=== PATIENT | female | born 1940 | race Caucasian/White ===

== ENCOUNTER 2018-01-29 17:47 | Emergency (ER) | payer MEDICARE, OTHER ==
[2018-01-29] MEDS ORDERED: DIAZEPAM INJ 10 MG/2 ML DISP.SYRIN IM ONE (19:45)
[2018-01-29] MEDS ORDERED: KETOROLAC TROMETHAMINE 60 MG/2 ML SDV IM ONE (19:45)
[2018-01-29] MEDS ORDERED: DEXAMETHASONE SOD PHOS INJ 10 MG/1 ML VIAL IM ONE (19:45)
--- NOTE | 2018-01-29 20:06 | ER Document Report ---
ED General - General Chief Complaint: Leg Pain Stated Complaint: LEG PAIN Time Seen by Provider: 01/29/18 19:26 Mode of Arrival: Wheelchair Information source: Patient, Relative Notes: 77 yr old female presents with hx dvt , complaints of right sided back pain radiating down the buttocks to the groin to the foot of 1 month duration. pt notes this is not similar to her previous dvt pain, states it is a sharp lightning pain. denies any weakness or numbness. denies any loss of bowel or bladder function. TRAVEL OUTSIDE OF THE [place] IN LAST 30 DAYS: No - HPI Onset: Other Onset/Duration: Persistent Quality of pain: Sharp Severity: Mild Pain Level: 1 Associated symptoms: Body/muscle aches Exacerbated by: Movement, Walking Relieved by: Denies - does not take nay meds for the pain Similar symptoms previously: Yes Recently seen / treated by doctor: No - Related Data Allergies/Adverse Reactions: meperidine HCl [From Demerol] Adverse Reaction (Intermediate, Verified 07/11/15 11:31) Hallucinations,verbally abusive Past Medical History - Social History Smoking Status: Never Smoker Cigarette use (# per day): No Chew tobacco use (# tins/day): No Smoking Education Provided: No Frequency of alcohol use: None Drug Abuse: None Family History: Reviewed & Not Pertinent Patient has suicidal ideation: No Patient has homicidal ideation: No - Past Medical History Cardiac Medical History: Reports: Hx Hypertension Denies: Hx Coronary Artery Disease, Hx Heart Attack Pulmonary Medical History: Reports: Hx Pneumonia - Years ago Denies: Hx Asthma, Hx Bronchitis, Hx COPD Neurological Medical History: Denies: Hx Cerebrovascular Accident, Hx Seizures Renal/ Medical History: Denies: Hx Peritoneal Dialysis GI Medical History: Reports: Hx Hiatal Hernia. Denies: Hx Hepatitis, Hx Ulcer Musculoskeltal Medical History: Reports Hx Arthritis - joints Infectious Medical History: Denies: Hx Hepatitis Past Surgical History: Reports: Hx Hysterectomy, Hx Mastectomy - bilat,NO RESTRICTIONS, 44 years ago. Denies: Hx Open Heart Surgery, Hx Pacemaker - Immunizations Hx Diphtheria, Pertussis, Tetanus Vaccination: - unknown Hx Pneumococcal Vaccination: 08/02/10 Review of Systems - Review of Systems Notes: REVIEW OF SYSTEMS: CONSTITUTIONAL : Denies fever, chills, or sweats. Denies recent illness. EENT: Denies eye, ear, throat, or mouth pain or symptoms. Denies nasal or sinus congestion or discharge. Denies throat, tongue, or mouth swelling or difficulty swallowing. CARDIOVASCULAR: Denies chest pain. Denies palpitations or racing or irregular heart beat. Denies ankle edema. RESPIRATORY: Denies cough, cold, or chest congestion. Denies shortness of breath, difficulty breathing, or wheezing. GASTROINTESTINAL: Denies abdominal pain or distention. Denies nausea, vomiting , or diarrhea. Denies blood in vomitus, stools, or per rectum. Denies black, tarry stools. Denies constipation. GENITOURINARY: Denies difficulty urinating, painful urination, burning, frequency, blood in urine, or discharge. FEMALE GENITOURINARY: Denies vaginal bleeding, heavy or abnormal periods, irregular periods. Denies vaginal discharge or odor. MUSCULOSKELETAL: admits to back pain radiating down the leg on the right HEMATOLOGIC : Denies easy bruising or bleeding. LYMPHATIC: Denies swollen, enlarged glands. NEUROLOGICAL: Denies confusion or altered mental status. Denies passing out or loss of consciousness. Denies dizziness or lightheadedness. Denies headache. Denies weakness or paralysis or loss of use of either side. Denies problems with gait or speech. Denies sensory loss, numbness, or tingling. Denies seizures. PSYCHIATRIC: Denies anxiety or stress. Denies depression, suicidal ideation, or homicidal ideation. ALL OTHER SYSTEMS REVIEWED AND NEGATIVE. PHYSICAL EXAMINATION: GENERAL: Well-appearing, well-nourished and in no acute distress. HEAD: Atraumatic, normocephalic. EYES: Pupils equal round and reactive to light, extraocular movements intact, conjunctiva are normal. ENT: Nares patent, oropharynx clear without exudates. Moist mucous membranes. NECK: Normal range of motion, supple without lymphadenopathy LUNGS: Breath sounds clear to auscultation bilaterally and equal. No wheezes rales or rhonchi. HEART: Regular rate and rhythm without murmurs ABDOMEN: Soft, nontender, nondistended abdomen. No guarding, no rebound. No masses appreciated. Female : deferred Musculoskeletal: Normal range of motion, no pitting or edema. No cyanosis. point tenderness noted in the right buttocks consistent with the sciatic nerve region NEUROLOGICAL: Cranial nerves grossly intact. Normal speech, normal gait. Normal sensory, motor exams PSYCH: Normal mood, normal affect. SKIN: Warm, Dry, normal turgor, no rashes or lesions noted. Dictation was performed using [employer] voice recognition software Physical Exam - Vital signs Vitals: Temp Pulse Resp BP Pulse Ox 97.7 F 68 18 132/64 H 98 01/29/18 17:57 01/29/18 17:57 01/29/18 17:57 01/29/18 17:57 01/29/18 17:57 Course - Re-evaluation Re-evalutation: 01/29/18 21:26 Patient's presentation was consistent with sciatica, given that this pain has been ongoing for a month she is otherwise well-appearing and denies that this pain is similar to previous DVTs I do believe she is stable for discharge with treatment of her sciatic nerve with extremely close follow-up patient's very happy with this plan Patient has absolutely no abdominal pain no back pain concerning for aortic dissection After performing a Medical Screening Examination, I estimate there is LOW risk for EXPANDING OR RUPTURED ABDOMINAL AORTIC ANEURYSM, CAUDA EQUINA SYNDROME, EPIDURAL MASS LESION, or HERNIATED DISK CAUSING SEVERE SPINAL STENOSIS, thus I consider the discharge disposition reasonable. I have reevaluated this patient multiple times and no significant life threatening changes are noted. The patient and I have discussed the diagnosis and risks, and we agree with discharging home and close follow-up. We also discussed returning to the Emergency Department immediately if new or worsening symptoms occur with the understanding that symptoms and presentations can change. We have discussed the symptoms which are most concerning (e.g., saddle anesthesia, urinary or bowel incontinence or retention, changing or worsening pain) that necessitate immediate return. - Vital Signs Vital signs: Temp Pulse Resp BP Pulse Ox 97.7 F 70 18 129/67 H 99 01/29/18 17:57 01/29/18 20:14 01/29/18 20:14 01/29/18 20:14 01/29/18 20:14 Discharge - Discharge Clinical Impression: Leg pain Qualifiers: Laterality: right Qualified Code(s): M79.604 - Pain in right leg Sciatica Qualifiers: Laterality: right Qualified Code(s): M54.31 - Sciatica, right side Condition: Stable Disposition: HOME, SELF-CARE Instructions: Sciatica (OM) Additional Instructions: Follow up with your physician tomorrow for further care or return to the ED IMMEDIATELY if symptoms worsen or new concerns occur. If you cannot afford to follow up with your primary care physician a list of low cost clinics have been provided at the end of your discharge papers as well. Prescriptions: Diazepam [Valium 5 mg Tablet] 5 mg PO QIDP PRN #15 tablet PRN Reason: Naproxen 500 mg PO BID #20 tablet Referrals: CHAIRSSA HERNÁNDEZ PA-C [Primary Care Provider] - Follow up as needed
[2018-01-29 20:15] VITALS: BP 129/67
== END 2018-01-29 20:15 | disposition home or self-care (01) ==
LOC: ER 17:47
DX: M54.31 Sciatica, right side (principal); M79.604 Pain in right leg; M54.9 Dorsalgia, unspecified; M79.1 Myalgia; I10 Essential (primary) hypertension
CPT/HCPCS: 99283; 96372; J3360; J1885; J1100

== ENCOUNTER 2018-11-26 13:03 | Emergency (ER) | payer MEDICARE, OTHER ==
[2018-11-26 14:21] LABS: INTERNATIONAL RATION (INR) 1.24; PROTHROMBIN TIME 16.2 SEC (11.4-15.4)
[2018-11-26 14:22] LABS: PARTIAL THROMBOPLASTIN TIME 37.5 SEC (23.5-35.8)
--- NOTE | 2018-11-26 14:32 | ER Document Report ---
ED General - General Chief Complaint: Leg Swelling Stated Complaint: SWOLLEN LEGS Time Seen by Provider: 11/26/18 13:29 Primary Care Provider: CHARISSA HERNÁNDEZ PA-C [Primary Care Provider] - Follow up as needed TRAVEL OUTSIDE OF THE [place] 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 Patient states that 10 days ago she had a cancerous lesion that out of her skin on the right side of her face and when she went for her follow-up 2 days ago they noticed that it was a little red so they placed her on Keflex. The swelling then started after taking 2 days of Keflex. Patient states that she is otherwise eating and drinking without difficulty. She is urinating normally and having normal bowel movements. Patient is able to ambulate line discomfort. Patient states that she does not have any associated pain, but can feel that she has swelling in her legs. No other concerns or complaints. Denies any headache, fever, neck pain, URI, sore throat, chest pain, palpitations, syncope, cough, shortness of breath, wheeze, dyspnea, abdominal pain, nausea/vomiting/diarrhea, urinary retention, dysuria, hematuria. - Related Data Allergies/Adverse Reactions: meperidine HCl [From Demerol] Adverse Reaction (Intermediate, Verified 11/26/18 13:05) Hallucinations,verbally abusive Past Medical History - Social History Smoking Status: Never Smoker Chew tobacco use (# tins/day): No Frequency of alcohol use: None Family History: Reviewed & Not Pertinent Patient has suicidal ideation: No Patient has homicidal ideation: No - Past Medical History Cardiac Medical History: Reports: Hx Hypertension Denies: Hx Coronary Artery Disease, Hx Heart Attack Pulmonary Medical History: Reports: Hx Pneumonia - Years ago Denies: Hx Asthma, Hx Bronchitis, Hx COPD Neurological Medical History: Denies: Hx Cerebrovascular Accident, Hx Seizures Renal/ Medical History: Denies: Hx Peritoneal Dialysis GI Medical History: Reports: Hx Hiatal Hernia. Denies: Hx Hepatitis, Hx Ulcer Musculoskeletal Medical History: Reports Hx Arthritis - joints Infectious Medical History: Denies: Hx Hepatitis Past Surgical History: Reports: Hx Hysterectomy, Hx Mastectomy - bilat,NO RESTRICTIONS, 44 years ago. Denies: Hx Open Heart Surgery, Hx Pacemaker - Immunizations Hx Diphtheria, Pertussis, Tetanus Vaccination: - unknown Hx Pneumococcal Vaccination: 08/02/10 Review of Systems - Review of Systems -: Yes All other systems reviewed and negative Physical Exam - Vital signs Vitals: Temp Pulse Resp BP Pulse Ox 98.5 F 64 16 131/42 H 99 11/26/18 13:20 11/26/18 13:20 11/26/18 13:20 11/26/18 13:20 11/26/18 13:20 - Notes Notes: PHYSICAL EXAMINATION: GENERAL: Well-appearing, well-nourished and in no acute distress. A&Ox4. Answers questions appropriately. HEAD: Atraumatic, normocephalic. EYES: Pupils equal round and reactive to light, extraocular movements intact, sclera anicteric, conjunctiva are normal. ENT: Nares patent and without discharge. oropharynx clear without exudates. No tonsilar hypertrophy or erythema. Moist mucous membranes. NECK: Normal range of motion, supple without lymphadenopathy LUNGS: Breath sounds clear to auscultation bilaterally and equal. No wheezes rales or rhonchi. HEART: Regular rate and rhythm without murmurs, rubs, gallops. ABDOMEN: Soft, nontender, nondistended abdomen. No guarding, no rebound. No masses appreciated. Normal bowel sounds present. No CVA tenderness bilaterally. Musculoskeletal: FROM to passive/active. Strength 5+/5. No bony tenderness to LE's b/l. Extremities: 1+ pitting edema b/l LE's extending proximally to the upper tibial area, sparing the knees. Peripheral pulses 2+. Capillary refill less than 3 seconds. Allison neg b/l. NEUROLOGICAL: Normal speech, normal gait. Normal sensory, motor exams PSYCH: Normal mood, normal affect. SKIN: LE's b/l: there is a mild petechiae noted as well as blanchable erythema. No significant warmth. The erythema is symmetrical b/l and extends to the mid tibia approx. Course - Re-evaluation Re-evalutation: 11/26/18 15:21 Venous doppler negative b/l CMP shows MARY vs CKD. We do not have updated labs on this patient. I placed a call and left a VM to their family provider's office whom I will check back in with if they don't return my call soon. 11/26/18 16:13 I have repeatedly called her family office with no answer. I did review with Dr. Gomez who is in agreement with dispo/plan: Patient is an afebrile, well-hydrated, 78-year-old female who presents the emergency department bilateral lower extremity edema without sufficient evidence for cellulitis. Vitals are acceptable without significant tachycardia, tachypnea, or hypoxia. PE is otherwise unremarkable. Patient is nontoxic- appearing and is tolerating p.o. without difficulty. Doppler ultrasound was negative bilaterally. CBC unremarkable for any acute pathology. CMP does show chronic kidney disease versus acute kidney injury with a potassium of 5.1. I will add Lasix 20 mg once daily for 3 days and have her follow-up with her family doctor on Thursday. Patient to monitor symptoms closely and seek medical attention with any acute changes. I do have a low suspicion at this time for any sepsis, meningitis, significant cellulitis, severe dehydration, acute congestive heart failure, or other systemic emergent condition at this time. Patient does not have any chest pain, shortness of breath, or dyspnea on exertion. No further labs or imaging warranted at this time. Patient would like to stop her Keflex so we will switch her to Doxy (no renal adjustment). Return to the ED with any other worsening/concerning symptoms as reviewed. Patient is in agreement. - Vital Signs Vital signs: Temp Pulse Resp BP Pulse Ox 98.5 F 64 16 131/42 H 99 11/26/18 13:20 11/26/18 13:20 11/26/18 13:20 11/26/18 13:20 11/26/18 13:20 - Laboratory Result Diagrams: 11/26/18 14:04 11/26/18 14:04 Laboratory results interpreted by me: 11/26/18 11/26/18 14:04 14:04 PT 16.2 H APTT 37.5 H Potassium 5.1 H BUN 33 H Creatinine 1.31 H Est GFR ( Amer) 48 L Est GFR (Non-Af Amer) 39 L Glucose 123 H Discharge - Discharge Clinical Impression: Bilateral lower extremity edema Condition: Stable Disposition: HOME, SELF-CARE Additional Instructions: Maintain adequate fluid and food intake Take home medications as directed Low sodium/fat diet Exercise regularly Elevate legs and wear compression stockings Monitor blood pressure daily and keep a log Monitor symptoms for any acute changes Recheck with your PCM on Thursday Consider a follow-up with cardiology Return to the ED with any worsening symptoms and/or development of fever, headache, chest pain, palpitations, syncope, shortness of breath, trouble breathing, abdominal pain, n/v/d, blood in stool/urine, loss of control of bowel/bladder, urinary retention, muscle weakness/paralysis, numbness/tingling, or other worsening symptoms that are concerning to you. Prescriptions: Doxycycline Hyclate 100 mg PO BID #14 capsule Furosemide [Lasix 20 mg Tablet] 20 mg PO DAILY #3 tablet Forms: Elevated Blood Pressure Referrals: CHARISSA HERNÁNDEZ PA-C [Primary Care Provider] - 11/29/18
[2018-11-26 14:37] LABS: ABSOLUTE EOSINOPHILS # (AUTO) 0.1 10^3/uL (0.0-0.6); ABSOLUTE LYMPHOCYTES (AUTO) 0.9 10^3/uL (0.5-4.7); ABSOLUTE MONOCYTES (AUTO) 0.5 10^3/uL (0.1-1.4); ABSOLUTE NEUT (AUTO) 4.5 10^3/uL (1.7-8.2); BASOPHILS % (AUTO) 0.7 % (0-2); EOSINOPHILS % (AUTO) 2.3 % (0-6); HEMOGLOBIN 12.3 g/dL (12.0-15.5); LYMPHOCYTES % (AUTO) 15.1 % (13-45); MEAN CORPUSCULAR HEMOGLOBIN 30.2 pg (27.0-33.4); MEAN CORPUSCULAR HGB CONC 33.3 g/dL (32.0-36.0); MEAN CORPUSCULAR VOLUME 91 fl (80-97); MONOCYTES % (AUTO) 8.3 % (3-13); PLATELET COUNT 342 10^3/uL (150-450); RED BLOOD COUNT 4.07 10^6/uL (3.72-5.28); RED CELL DISTRIBUTION WIDTH 13.6 % (11.5-14.0); SEGMENTED NEUTROPHILS % (AUTO) 73.6 % (42-78); TOTAL CELLS COUNTED % (AUTO) 100 %; WHITE BLOOD COUNT 6.1 10^3/uL (4.0-10.5)
[2018-11-26 14:39] LABS: ALANINE AMINOTRANSFERASE 29 U/L (9-52); ALBUMIN 4.7 g/dL (3.5-5.0); ALKALINE PHOSPHATASE 69 U/L (38-126); ANION GAP 11 (5-19); ASPARTATE AMINO TRANSFERASE 24 U/L (14-36); BILIRUBIN,DIRECT 0.3 mg/dL (0.0-0.4); BILIRUBIN,TOTAL 0.5 mg/dL (0.2-1.3); BLOOD UREA NITROGEN 33 mg/dL (7-20); CALCIUM 9.8 mg/dL (8.4-10.2); CARBON DIOXIDE 25 mmol/L (22-30); CHLORIDE 103 mmol/L (98-107); GLUCOSE 123 mg/dL (75-110); POTASSIUM 5.1 mmol/L (3.6-5.0); SODIUM 139.1 mmol/L (137-145); TOTAL PROTEIN 7.2 g/dL (6.3-8.2)
[2018-11-26] MEDS ORDERED: NORMAL SALINE 1000 ML 1,000 ML IV ONE (15:14)
--- NOTE | 2018-11-26 16:11 | RADIOLOGY REPORT (SQ) ---
EXAM DESCRIPTION: VENOUS BILATERAL LOWER COMPLETED DATE/TIME: 11/26/2018 4:00 pm REASON FOR STUDY: b/l LE edema COMPARISON: None. TECHNIQUE: Dynamic and static box scale and color images acquired of both lower extremity venous sy stems. Selected spectral images acquired with additional compression and augmentation maneuvers. Imag es stored on PACS. LIMITATIONS: None. FINDINGS: RIGHT LEG COMMON FEMORAL AND FEMORAL: Normal phasicity, compression and augmentation. No visualized echogenic m aterial on box scale. No defects on color images. POPLITEAL: Normal compression and augmentation. No visualized echogenic material on box scale. No de fects on color images. CALF VESSELS: Normal compression and augmentation. No visualized echogenic material on box scale. No defects on color image. GSV AND SSV: Normal compression. No visualized echogenic material on box scale. No defects on color images. ANY DEEP VENOUS INSUFFICIENCY: Not evaluated. ANY EVIDENCE OF POPLITEAL CYST: No. OTHER: No other significant finding. LEFT LEG COMMON FEMORAL AND FEMORAL: Normal phasicity, compression and augmentation. No visualized echogenic m aterial on box scale. No defects on color images. POPLITEAL: Normal compression and augmentation. No visualized echogenic material on box scale. No de fects on color images. CALF VESSELS: Normal compression and augmentation. No visualized echogenic material on box scale. No defects on color images. GSV AND SSV: Normal compression. No visualized echogenic material on box scale. No defects on color images. ANY DEEP VENOUS INSUFFICIENCY: Not evaluated. ANY EVIDENCE POPLITEAL CYST: No. OTHER: No other significant finding. IMPRESSION: NO EVIDENCE DVT OR SVT IN EITHER LEG. TECHNICAL DOCUMENTATION: JOB ID: [id number]- All Rights Reserved Reading location - IP/workstation name: [email or web address]
[2018-11-26 16:33] VITALS: BP 143/80
--- NOTE | 2018-11-26 18:18 | ER Document Report ---
Entered by ADELINE VARGAS SCRIBE 11/26/18 1406 Acting as scribe for:JENNIFER BENJAMIN DO ED Medical Screen (RME) - General Chief Complaint: Leg Swelling Stated Complaint: SWOLLEN LEGS Time Seen by Provider: 11/26/18 13:29 Primary Care Provider: CHARISSA HERNÁNDEZ PA-C [Primary Care Provider] - Follow up as needed Notes: 78-year-old female who presents to the emergency department today secondary to bilateral leg erythema, warmth, and swelling. Patient states 10 days ago she underwent surgery to have an unknown type of skin cancer removed from the right side of her face. Patient states this operation lasted approximately 1 hour and she was under general anesthesia for the surgery. Patient states when she went in for her stitch removal there was some redness around the area so she was started on Keflex. Patient states the swelling and erythema on her legs did not start until after beginning the Keflex. Patient is on Eliquis. Patient has a history of multiple DVTs. Patient denies any recent trips. I have greeted and performed a rapid initial assessment of this patient. A comprehensive ED assessment and evaluation of the patient, analysis of test results, and completion of the medical decision making process will be conducted by additional ED providers. Review of systems: Constitutional: No symptoms reported EENT: No symptoms reported Cardiovascular: No symptoms reported Respiratory: No symptoms reported Gastrointestinal: No symptoms reported Genitourinary: No symptoms reported Musculoskeletal: No symptoms reported Skin: No symptoms reported Hematologic/Lymphatic: No symptoms reported Neurological/Psychological: No symptoms reported Yes All other systems reviewed and negative PHYSICAL EXAM GENERAL: Alert, interacts well. No acute distress. HEAD: Normocephalic, atraumatic. EYES: Pupils equal, round, and reactive to light. Extraocular movements intact. ENT: Oral mucosa moist, tongue midline. NECK: Full range of motion. Supple. Trachea midline. LUNGS: No respiratory distress. EXTREMITIES: 1+ pitting edema to bilateral lower extremities with petechiae as well as blanchable erythema. The swelling extends to approximately two thirds the length of the lower leg, there is no swelling at the level of the knee. No temperature difference in erythematous area versus non-erythematous areas. NEUROLOGICAL: Alert and oriented x3. Normal speech. PSYCH: Normal affect, normal mood. SKIN: Warm and dry. TRAVEL OUTSIDE OF THE [place] IN LAST 30 DAYS: No - Related Data Allergies/Adverse Reactions: meperidine HCl [From Demerol] Adverse Reaction (Intermediate, Verified 11/26/18 13:05) Hallucinations,verbally abusive Past Medical History - Social History Chew tobacco use (# tins/day): No Frequency of alcohol use: None - Past Medical History Cardiac Medical History: Reports: Hx Hypertension Denies: Hx Coronary Artery Disease, Hx Heart Attack Pulmonary Medical History: Reports: Hx Pneumonia - Years ago Denies: Hx Asthma, Hx Bronchitis, Hx COPD Neurological Medical History: Denies: Hx Cerebrovascular Accident, Hx Seizures Renal/ Medical History: Denies: Hx Peritoneal Dialysis GI Medical History: Reports: Hx Hiatal Hernia. Denies: Hx Hepatitis, Hx Ulcer Musculoskeltal Medical History: Reports Hx Arthritis - joints Infectious Medical History: Denies: Hx Hepatitis Past Surgical History: Reports: Hx Hysterectomy, Hx Mastectomy - bilat,NO RESTRICTIONS, 44 years ago. Denies: Hx Open Heart Surgery, Hx Pacemaker - Immunizations Hx Diphtheria, Pertussis, Tetanus Vaccination: - unknown Physical Exam - Vital signs Vitals: Temp Pulse Resp BP Pulse Ox 98.5 F 64 16 131/42 H 99 11/26/18 13:20 11/26/18 13:20 11/26/18 13:20 11/26/18 13:20 11/26/18 13:20 Course - Vital Signs Vital signs: Temp Pulse Resp BP Pulse Ox 98.5 F 64 16 131/42 H 99 11/26/18 13:20 11/26/18 13:20 11/26/18 13:20 11/26/18 13:20 11/26/18 13:20 Doctor's Discharge - Discharge Referrals: CHARISSA HERNÁNDEZ PA-C [Primary Care Provider] - Follow up as needed I personally performed the services described in the documentation, reviewed and edited the documentation which was dictated to the scribe in my presence, and it accurately records my words and actions.
== END 2018-11-26 16:34 | disposition home or self-care (01) ==
LOC: ER 13:03
DX: R60.9 Edema, unspecified (principal); I10 Essential (primary) hypertension; Z86.718 Personal history of other venous thrombosis and embolism; Z79.01 Long term (current) use of anticoagulants; Z90.710 Acquired absence of both cervix and uterus
CPT/HCPCS: 36415; 80053; 85025; 85610; 85730; 93970; 99284

== ENCOUNTER 2018-12-02 18:33 | Emergency (ER) | payer MEDICARE, OTHER ==
[2018-12-02] MEDS ORDERED: ONDANSETRON HCL INJ/PF 4 MG/2 ML SDV IV ONE ×2 (18:46→21:49)
[2018-12-02] MEDS ORDERED: NORMAL SALINE 1000 ML 1,000 ML IV ONE (18:46)
--- NOTE | 2018-12-02 18:48 | ER Document Report ---
ED Medical Screen (RME) - General Chief Complaint: Weakness Stated Complaint: POSSIBLE DEHYDRATION Time Seen by Provider: 12/02/18 18:45 Primary Care Provider: CHARISSA HERNÁNDEZ PA-C [Primary Care Provider] - Follow up as needed TRAVEL OUTSIDE OF THE [place] IN LAST 30 DAYS: No - HPI Notes: 12/02/18 18:46 Patient had a cancer removed left side of her face since that time nauseated saw her doctor today told that she was very dehydrated according to the laboratory studies and come to the ER for IV fluids. Patient has dry lips otherwise moist tongue looks to be stable 12/02/18 18:47 No nausea no vomiting - Related Data Allergies/Adverse Reactions: meperidine HCl [From Demerol] Adverse Reaction (Intermediate, Verified 12/02/18 18:40) Hallucinations,verbally abusive Past Medical History - Social History Frequency of alcohol use: None Drug Abuse: None - Past Medical History Cardiac Medical History: Reports: Hx Hypertension Denies: Hx Coronary Artery Disease, Hx Heart Attack Pulmonary Medical History: Reports: Hx Pneumonia - Years ago Denies: Hx Asthma, Hx Bronchitis, Hx COPD Neurological Medical History: Denies: Hx Cerebrovascular Accident, Hx Seizures Renal/ Medical History: Denies: Hx Peritoneal Dialysis GI Medical History: Reports: Hx Hiatal Hernia. Denies: Hx Hepatitis, Hx Ulcer Musculoskeltal Medical History: Reports Hx Arthritis - joints Infectious Medical History: Denies: Hx Hepatitis Past Surgical History: Reports: Hx Hysterectomy, Hx Mastectomy - bilat,NO RESTRICTIONS, 44 years ago. Denies: Hx Open Heart Surgery, Hx Pacemaker - Immunizations Hx Diphtheria, Pertussis, Tetanus Vaccination: - unknown Physical Exam - Vital signs Vitals: Temp Pulse Resp BP Pulse Ox 97.7 F 62 20 139/58 H 98 12/02/18 18:40 12/02/18 18:40 12/02/18 18:40 12/02/18 18:40 12/02/18 18:40 - Respiratory Respiratory status: No respiratory distress Chest status: Nontender Breath sounds: Normal Chest palpation: Normal Course - Vital Signs Vital signs: Temp Pulse Resp BP Pulse Ox 97.7 F 62 20 139/58 H 98 12/02/18 18:40 12/02/18 18:40 12/02/18 18:40 12/02/18 18:40 12/02/18 18:40 Doctor's Discharge - Discharge Referrals: CHARISSA HERNÁNDEZ PAJenniferC [Primary Care Provider] - Follow up as needed
[2018-12-02 19:48] LABS: ABSOLUTE LYMPHOCYTES (AUTO) 1.7 10^3/uL (0.5-4.7); ABSOLUTE MONOCYTES (AUTO) 0.8 10^3/uL (0.1-1.4); ABSOLUTE NEUT (AUTO) 4.2 10^3/uL (1.7-8.2); BASOPHILS % (AUTO) 0.6 % (0-2); EOSINOPHILS % (AUTO) 0.6 % (0-6); HEMATOCRIT 38.3 % (36.0-47.0); HEMOGLOBIN 13.3 g/dL (12.0-15.5); LYMPHOCYTES % (AUTO) 25.6 % (13-45); MEAN CORPUSCULAR HEMOGLOBIN 31.3 pg (27.0-33.4); MEAN CORPUSCULAR HGB CONC 34.6 g/dL (32.0-36.0); MEAN CORPUSCULAR VOLUME 91 fl (80-97); MONOCYTES % (AUTO) 11.9 % (3-13); PLATELET COUNT 389 10^3/uL (150-450); RED BLOOD COUNT 4.23 10^6/uL (3.72-5.28); RED CELL DISTRIBUTION WIDTH 13.4 % (11.5-14.0); SEGMENTED NEUTROPHILS % (AUTO) 61.3 % (42-78); TOTAL CELLS COUNTED % (AUTO) 100 %; WHITE BLOOD COUNT 6.8 10^3/uL (4.0-10.5)
[2018-12-02 19:54] LABS: INTERNATIONAL RATION (INR) 1.32
[2018-12-02 19:55] LABS: PARTIAL THROMBOPLASTIN TIME 34.4 SEC (23.5-35.8)
[2018-12-02 20:07] LABS: ALANINE AMINOTRANSFERASE 19 U/L (9-52); ALBUMIN 5.1 g/dL (3.5-5.0); ALKALINE PHOSPHATASE 66 U/L (38-126); ANION GAP 17 (5-19); ASPARTATE AMINO TRANSFERASE 34 U/L (14-36); BILIRUBIN,DIRECT 0.5 mg/dL (0.0-0.4); BILIRUBIN,TOTAL 0.5 mg/dL (0.2-1.3); BLOOD UREA NITROGEN 66 mg/dL (7-20); CALCIUM 9.2 mg/dL (8.4-10.2); CARBON DIOXIDE 26 mmol/L (22-30); CHLORIDE 97 mmol/L (98-107); GLUCOSE 143 mg/dL (75-110); LIPASE 104.2 U/L (23-300); POTASSIUM 4.5 mmol/L (3.6-5.0); SODIUM 139.7 mmol/L (137-145); TOTAL PROTEIN 8.4 g/dL (6.3-8.2)
[2018-12-02] MEDS ORDERED: NORMAL SALINE 500 ML IV ONE ×2 (20:24→23:37)
--- NOTE | 2018-12-02 20:24 | ER Document Report ---
ED GI/ - General Chief Complaint: Weakness Stated Complaint: POSSIBLE DEHYDRATION Time Seen by Provider: 12/02/18 18:45 Primary Care Provider: CHARISSA HERNÁNDEZ PA-C [Primary Care Provider] - Follow up as needed Notes: Patient is a 78-year-old female that comes to the emergency department for chief complaint of dry heaving and mid to left abdominal pain for almost a week now. She states that when she eats she vomits or at least dry heaves, she has done this twice a day, she is eating and drinking much less as a result. She was in here by primary care for possible dehydration. Past medical history of DVT, on Coumadin, hypertension, hypothyroidism, hysterectomy, appendectomy, hernia repair. She states she is on doxycycline after she had skin removed from her face and then secondary infection (originally on Keflex, placed on doxycycline last time she was seen). She denies chest pain, fever/chills, blood in stool or vomiting. She is having decreased bowel movements because of decreased intake she presumes. TRAVEL OUTSIDE OF THE [place] IN LAST 30 DAYS: No - Related Data Allergies/Adverse Reactions: meperidine HCl [From Demerol] Adverse Reaction (Intermediate, Verified 12/02/18 18:40) Hallucinations,verbally abusive Past Medical History - General Information source: Patient, Relative - Social History Smoking Status: Never Smoker Frequency of alcohol use: None Drug Abuse: None Lives with: Family Family History: Reviewed & Not Pertinent Patient has suicidal ideation: No Patient has homicidal ideation: No - Past Medical History Cardiac Medical History: Reports: Hx Hypertension Denies: Hx Coronary Artery Disease, Hx Heart Attack Pulmonary Medical History: Reports: Hx Pneumonia - Years ago Denies: Hx Asthma, Hx Bronchitis, Hx COPD Neurological Medical History: Denies: Hx Cerebrovascular Accident, Hx Seizures Renal/ Medical History: Denies: Hx Peritoneal Dialysis GI Medical History: Reports: Hx Hiatal Hernia. Denies: Hx Hepatitis, Hx Ulcer Musculoskeletal Medical History: Reports Hx Arthritis - joints Infectious Medical History: Denies: Hx Hepatitis Past Surgical History: Reports: Hx Hysterectomy, Hx Mastectomy - bilat,NO RESTRICTIONS, 44 years ago. Denies: Hx Open Heart Surgery, Hx Pacemaker - Immunizations Hx Diphtheria, Pertussis, Tetanus Vaccination: - unknown Hx Pneumococcal Vaccination: 08/02/10 Review of Systems - Review of Systems Constitutional: No symptoms reported EENT: No symptoms reported Cardiovascular: No symptoms reported Respiratory: No symptoms reported Gastrointestinal: See HPI Genitourinary: No symptoms reported Female Genitourinary: No symptoms reported Musculoskeletal: No symptoms reported Skin: No symptoms reported Hematologic/Lymphatic: No symptoms reported Neurological/Psychological: No symptoms reported Physical Exam - Vital signs Vitals: Temp Pulse Resp BP Pulse Ox 97.7 F 62 20 139/58 H 98 12/02/18 18:40 12/02/18 18:40 12/02/18 18:40 12/02/18 18:40 12/02/18 18:40 - Notes Notes: GENERAL: Alert, interacts well. No acute distress. HEAD: Normocephalic, atraumatic. EYES: Pupils equal, round, and reactive to light. Extraocular movements intact. ENT: Oral mucosa very dry, tongue midline. Oropharynx unremarkable. Airway patent. Nares patent, no nasal septal hematoma, TM's intact. NECK: Full range of motion. Supple. Trachea midline. LUNGS: Clear to auscultation bilaterally, no wheezes, rales, or rhonchi. No respiratory distress. HEART: Regular rate and rhythm. No murmur ABDOMEN: Tender over the left abdomen generally, no guarding, tension noted, no rebound tenderness. Unremarkable otherwise. Bowel sounds present. GENITOURINARY: Deferred EXTREMITIES: Moves all 4 extremities spontaneously. No edema, normal radial and dorsalis pedis pulses bilaterally. No cyanosis. BACK: no cervical, thoracic, lumbar midline tenderness. No saddle anesthesia, normal distal neurovascular exam. NEUROLOGICAL: Alert and oriented x3. Normal speech. [cranial nerves II through XII grossly intact]. PSYCH: Normal affect, normal mood. SKIN: Warm, dry, normal turgor. No rashes or lesions noted. Course - Re-evaluation Re-evalutation: Patient with parched mucous membranes on exam, appears dry. She does have left- sided abdominal tenderness but she is not guarding, distended, and she has no rebound tenderness. Vital signs are unremarkable. CBC unremarkable. Chemistry shows worsened renal function with creatinine of 2.5 and decreased creatinine clearance. BUN is very elevated at 66. Patient given initial IV fluid bolus, given an additional 500 afterwards, she will also complete the 2 L bolus shortly. Reexamined patient, still has some abdominal tenderness. She states she feels somewhat improved already. Discussed options, decision was made to proceed with scan with oral contrast. Oral contrast scan showing moderate hiatal hernia but is otherwise unremarkable, no acute findings. I reevaluated patient again, recheck chemistry. Patient sitting on the edge of the bed, states she feels much improved and is ready to leave. Daughter at bedside. Creatinine significantly improved after IV fluids, BUN is coming down. Patient stating that she has a lot of difficulty with eating with nausea, however she was able to tolerate p.o. in the room after medications without any difficulty, she is requesting Zofran. Given Pepcid and Carafate as well given hiatal hernia and history. Discussed recommendations, follow-up, and return precautions. Patient will perform close follow-up with an appointment already scheduled within 24 hours, given her report today. Stable at time of discharge. - Vital Signs Vital signs: Temp Pulse Resp BP Pulse Ox 97.6 F 63 18 124/55 L 99 12/03/18 02:18 12/03/18 02:18 12/03/18 02:18 12/03/18 02:18 12/03/18 02:18 - Laboratory Result Diagrams: 12/02/18 19:23 12/03/18 00:40 Laboratory results interpreted by me: 12/02/18 12/02/18 12/03/18 19:23 19:23 00:40 PT 17.0 H Sodium 136.5 L Chloride 97 L BUN 66 H 56 H Creatinine 2.36 H 1.58 H Est GFR ( Amer) 24 L 38 L Est GFR (Non-Af Amer) 20 L 32 L Glucose 143 H 112 H Calcium 8.1 L Direct Bilirubin 0.5 H Total Protein 8.4 H Albumin 5.1 H Discharge - Discharge Clinical Impression: Dehydration, Nausea, Creatinine elevation, Uremia of renal origin Condition: Stable Disposition: HOME, SELF-CARE Additional Instructions: Your workup shows a hiatal hernia, this probably is related to your nausea and reduced ability to eat. We have provided you with Zofran for nausea, famoti dine, and the Carafate to help her symptoms improve. Please follow-up with gastroenterology for additional evaluation and management. Your workup also showed significantly worsening kidney functioning, after IV fluid therapy your kidneys have responded and significantly improved. Try to improve your hydration at home. Return if you worsen including vomiting, severe abdominal pain, fever, passing out, or any other concerning symptoms. Prescriptions: Famotidine [Pepcid 20 mg Tablet] 20 mg PO BID #20 tablet Ondansetron [Zofran Odt 4 mg Tablet] 1 - 2 tab PO Q4H PRN #20 tab.rapdis PRN Reason: For Nausea/Vomiting Sucralfate [Carafate 1 gm Tablet] 1 gm PO QID #20 tablet Referrals: CHARISSA HERNÁNDEZ PA-C [Primary Care Provider] - Follow up as needed
--- NOTE | 2018-12-03 00:57 | RADIOLOGY REPORT (SQ) ---
EXAM DESCRIPTION: CT ABDOMEN PELVIS WITHOUT IV CONTRAST COMPLETED DATE/TME: 12/02/2018 21:48 CLINICAL HISTORY: 78 years Female, left abd pain, vomiting Comparison: None. Technique: No IV contrast. Oral contrast only. Coronal and sagittal reformat. This exam was performed according to our departmental dose-optimization program, which includes automated exposure control, adjustment of the mA and/or kV according to patient size and/or use of iterative reconstruction technique.[facility]: Dose Right [facility]: CareDose [facility]: Dose Right [facility]: Teradose 4D [facility]: CartRescuer LIMITATIONS: None Findings: Moderate hiatal hernia. 4 cm subcutaneous fat streaking probably due to scar at the right paracentral anterior pelvic wall. Appendectomy. Cholecystectomy. Uterus surgically absent. IVC filter. Atelectasis/scar. Atherosclerotic vascular disease. Degenerative disc disease. Grade 1 degenerative anterolisthesis. No ascites. No pneumoperitoneum. No bowel obstruction. No hydronephrosis or hydroureter. No renal/ureteral stone. Unenhanced lower thorax, abdominopelvic structures, and musculoskeleton appear otherwise grossly unremarkable. Impression: No acute findings. Moderate hiatal hernia.
[2018-12-03 00:59] LABS: ANION GAP 13 (5-19); BLOOD UREA NITROGEN 56 mg/dL (7-20); CALCIUM 8.1 mg/dL (8.4-10.2); CARBON DIOXIDE 22 mmol/L (22-30); CHLORIDE 102 mmol/L (98-107); GLUCOSE 112 mg/dL (75-110); POTASSIUM 4.4 mmol/L (3.6-5.0); SODIUM 136.5 mmol/L (137-145)
[2018-12-03] MEDS ORDERED: ONDANSETRON ODT 4 MG TAB (6 TAB/ER DISP) PO PRN (02:02)
[2018-12-03 02:22] VITALS: BP 124/55
--- NOTE | 2018-12-03 07:55 | EKG REPORT ---
SEVERITY:- ABNORMAL ECG - SINUS RHYTHM ATRIAL PREMATURE COMPLEX PROBABLE LEFT VENTRICULAR HYPERTROPHY : Confirmed by: Stew Hines MD 03-Dec-2018 07:54:33
== END 2018-12-03 02:22 | disposition home or self-care (01) ==
LOC: ER 18:33
DX: E86.0 Dehydration (principal); N19 Unspecified kidney failure; R11.0 Nausea; K44.9 Diaphragmatic hernia without obstruction or gangrene; I10 Essential (primary) hypertension; R10.9 Unspecified abdominal pain; L08.9 Local infection of the skin and subcutaneous tissue, unspecified; Z98.890 Other specified postprocedural states; Z86.718 Personal history of other venous thrombosis and embolism; Z79.01 Long term (current) use of anticoagulants; Z90.49 Acquired absence of other specified parts of digestive tract; Z90.710 Acquired absence of both cervix and uterus
CPT/HCPCS: 93005; 96376; 99284; 96361; 96374; 36415; 83690; 85025; 85610; 85730; 80048; 80053; 74176; 93010; J2405; J7030; J7040; A9270

== ENCOUNTER 2019-06-27 18:09 | Emergency (ER) | payer MEDICARE, OTHER ==
--- NOTE | 2019-06-27 19:18 | ER Document Report ---
ED Medical Screen (RME) - General Chief Complaint: Fall Stated Complaint: FALL Time Seen by Provider: 06/27/19 19:15 Primary Care Provider: CHARISSA HERNÁNDEZ PA-C [Primary Care Provider] - Follow up as needed TRAVEL OUTSIDE OF THE [place] IN LAST 30 DAYS: No - HPI Notes: 06/27/19 21:41 78-year-old female to the emergency department with complaints of headache, neck pain, left shoulder pain, left wrist pain, left hip pain and left knee pain after she sustained a fall just prior to arrival. She states that she is on blood thinners. She denies any loss of consciousness. She denies any vomiting. She is up-to-date on her immunizations. She states the wrist hurts pretty ba dly. I performed a medical screening exam on this patient. She is tender to palpation to the midline cervical spine, left shoulder, left wrist. Left wrist appears to have deformity. I have ordered x-rays. She will be bedded into the back and seen and further managed by Main side provider. - Related Data Allergies/Adverse Reactions: meperidine HCl [From Demerol] Adverse Reaction (Intermediate, Verified 12/02/18 18:40) Hallucinations,verbally abusive Past Medical History - Social History Frequency of alcohol use: None Drug Abuse: None - Past Medical History Cardiac Medical History: Reports: Hx Hypertension Denies: Hx Coronary Artery Disease, Hx Heart Attack Pulmonary Medical History: Reports: Hx Pneumonia - Years ago Denies: Hx Asthma, Hx Bronchitis, Hx COPD Neurological Medical History: Denies: Hx Cerebrovascular Accident, Hx Seizures Renal/ Medical History: Denies: Hx Peritoneal Dialysis GI Medical History: Reports: Hx Hiatal Hernia. Denies: Hx Hepatitis, Hx Ulcer Musculoskeltal Medical History: Reports Hx Arthritis - joints Infectious Medical History: Denies: Hx Hepatitis Past Surgical History: Reports: Hx Hysterectomy, Hx Mastectomy - bilat,NO RESTRICTIONS, 44 years ago. Denies: Hx Open Heart Surgery, Hx Pacemaker - Immunizations Hx Diphtheria, Pertussis, Tetanus Vaccination: - unknown Physical Exam - Vital signs Vitals: Temp Pulse Resp BP Pulse Ox 98.6 F 59 L 16 164/57 H 99 06/27/19 18:46 06/27/19 18:46 06/27/19 18:46 06/27/19 18:46 06/27/19 18:46 Course - Vital Signs Vital signs: Temp Pulse Resp BP Pulse Ox 98.6 F 57 L 16 144/61 H 98 06/27/19 18:46 06/27/19 21:09 06/27/19 21:09 06/27/19 21:09 06/27/19 21:09 - Laboratory Result Diagrams: 06/27/19 20:31 Laboratory results interpreted by me: 06/27/19 20:31 Sodium 134.9 L BUN 30 H Est GFR (MDRD) Non-Af 56 L Glucose 131 H Doctor's Discharge - Discharge Referrals: CHARISSA HERNÁNDEZ PAJenniferC [Primary Care Provider] - Follow up as needed
--- NOTE | 2019-06-27 20:34 | RADIOLOGY REPORT (SQ) ---
EXAM DESCRIPTION: RadLex: XR HIP 2 OR MORE VIEWS Views: 2, AP pelvis and frog-leg view of left hip CLINICAL HISTORY: 78 years Female, hip, fall COMPARISON: None. FINDINGS: Negative for acute fracture, dislocation, or radiopaque foreign body. IVC filter is partially visualized. IMPRESSION: 1. No acute findings.
--- NOTE | 2019-06-27 20:41 | RADIOLOGY REPORT (SQ) ---
EXAM DESCRIPTION: Left shoulder Rad[facility]: XR SHOULDER 2 OR MORE VIEWS Views: 3 CLINICAL HISTORY: 78 years Female, shoulder pain, fall COMPARISON: None. FINDINGS: Negative for acute fracture, dislocation, or radiopaque foreign body. IMPRESSION: 1. No acute findings.
--- NOTE | 2019-06-27 20:43 | RADIOLOGY REPORT (SQ) ---
EXAM DESCRIPTION: Left wrist Rad[facility]: XR WRIST 3 OR MORE VIEWS Views: 3 CLINICAL HISTORY: 78 years Female, wrist deformity, fall COMPARISON: None. FINDINGS: Acute fracture extends transversely through the distal radial metaphyseal region. No significant displacement/angulation. There is no extension to the articular surface. The distal ulna remains intact. Carpal bones are intact. IMPRESSION: 1. Nondisplaced transverse fracture through the distal radial metaphysis.
--- NOTE | 2019-06-27 20:48 | RADIOLOGY REPORT (SQ) ---
EXAM DESCRIPTION: Left knee Rad[facility]: XR KNEE 4 OR MORE VIEWS Views: 4 CLINICAL HISTORY: 78 years Female, knee pain, fall COMPARISON: None. FINDINGS: Pancreas is osteophytes are noted along the patellofemoral joint. No significant joint effusion. Overall alignment of the knee is anatomic. No acute fractures. Mild vascular calcifications are noted. IMPRESSION: 1. No acute findings. 2. Chronic degenerative changes of the patella
[2019-06-27 20:57] LABS: INTERNATIONAL RATION (INR) 1.04; PROTHROMBIN TIME 13.6 SEC (11.4-15.4)
--- NOTE | 2019-06-27 21:02 | RADIOLOGY REPORT (SQ) ---
EXAM DESCRIPTION: RadLex: CT CERVICAL SPINE WITHOUT IV CONTRAST CLINICAL HISTORY: 78 years Female; neck pain, fall, on xarelto TECHNIQUE: Noncontrast cervical spine CT with sagittal and coronal reconstructions. All CT scans at this facility use dose modulation, iterative reconstruction, and/or weight based dosing when appropriate to reduce radiation dose to as low as reasonably achievable. COMPARISON: None FINDINGS: Alignment is anatomic. Mild degenerative changes are noted in the lower cervical spine. No prevertebral edema. There is no acute fracture of the cervical spine. No epidural hematoma. IMPRESSION: 1. No acute cervical spine fracture or subluxation.
--- NOTE | 2019-06-27 21:04 | RADIOLOGY REPORT (SQ) ---
EXAM DESCRIPTION: RadLex: CT HEAD WITHOUT IV CONTRAST CLINICAL HISTORY: 78 years Female; headache, fall, on xarelto TECHNIQUE: Noncontrast CT head. All CT scans at this facility use dose modulation, iterative reconstruction, and/or weight based dosing when appropriate to reduce radiation dose to as low as reasonably achievable. COMPARISON: None. FINDINGS: Hernandez matter, white matter, ventricles, and cisterns are within normal limits. No acute hemorrhage or mass effect. There is mucosal thickening in both sphenoid sinuses, with a somewhat frothy appearance. Other paranasal sinuses are clear. Mastoids are clear. No acute calvarial fractures. No scalp hematoma. Both globes are aphakic. IMPRESSION: 1. No acute intracranial findings. 2. Mild sphenoid sinus mucosal thickening; please correlate with clinical symptoms regarding possible sinusitis.
[2019-06-27 21:09] LABS: ANION GAP 9 (5-19); BLOOD UREA NITROGEN 30 mg/dL (7-20); CALCIUM 9.5 mg/dL (8.4-10.2); CARBON DIOXIDE 27 mmol/L (22-30); CHLORIDE 99 mmol/L (98-107); GLUCOSE 131 mg/dL (75-110)
[2019-06-27] MEDS ORDERED: BACITRACIN ZINC OINTMENT 15 GM TP ONE (22:40)
[2019-06-27] MEDS ORDERED: TRAMADOL HCL 50 MG TABLET PO ONE (22:41)
--- NOTE | 2019-06-27 22:49 | ER Document Report ---
ED General - General Chief Complaint: Fall Stated Complaint: FALL Time Seen by Provider: 06/27/19 19:15 Primary Care Provider: CHARISSA HERNÁNDEZ PA-C [Primary Care Provider] - Follow up as needed Mode of Arrival: Ambulatory Information source: Patient, Relative TRAVEL OUTSIDE OF THE [place] IN LAST 30 DAYS: No - HPI Notes: Patient is a 78-year-old female presents the emergency department with report that she tripped coming into the steps and fell over on her left shoulder and injured her left hip knee shoulder and wrist. The patient reports she also struck her head. She denies any back pain but reports mild pain to the neck. The patient reports no chest pain or abdominal pain. No numbness, paresthesia, constipation, diarrhea, dysuria, cough, congestion. Past medical history CHF, chronic renal insufficiency and previous DVT. The patient is on Xarelto. Patient denies significant headache currently. - Related Data Allergies/Adverse Reactions: meperidine HCl [From Demerol] Adverse Reaction (Intermediate, Verified 12/02/18 18:40) Hallucinations,verbally abusive Past Medical History - General Information source: Patient - Social History Smoking Status: Never Smoker Frequency of alcohol use: None Drug Abuse: None Lives with: Family Family History: Reviewed & Not Pertinent Patient has suicidal ideation: No Patient has homicidal ideation: No - Past Medical History Cardiac Medical History: Reports: Hx Hypertension Denies: Hx Coronary Artery Disease, Hx Heart Attack Pulmonary Medical History: Reports: Hx Pneumonia - Years ago Denies: Hx Asthma, Hx Bronchitis, Hx COPD Neurological Medical History: Denies: Hx Cerebrovascular Accident, Hx Seizures Renal/ Medical History: Denies: Hx Peritoneal Dialysis GI Medical History: Reports: Hx Hiatal Hernia. Denies: Hx Hepatitis, Hx Ulcer Musculoskeletal Medical History: Reports Hx Arthritis - joints Infectious Medical History: Denies: Hx Hepatitis Past Surgical History: Reports: Hx Hysterectomy, Hx Mastectomy - bilat,NO RESTRICTIONS, 44 years ago. Denies: Hx Open Heart Surgery, Hx Pacemaker - Immunizations Hx Diphtheria, Pertussis, Tetanus Vaccination: - unknown Hx Pneumococcal Vaccination: 08/02/10 Review of Systems - Review of Systems -: Yes All other systems reviewed and negative Physical Exam - Vital signs Vitals: Temp Pulse Resp BP Pulse Ox 98.6 F 59 L 16 164/57 H 99 06/27/19 18:46 06/27/19 18:46 06/27/19 18:46 06/27/19 18:46 06/27/19 18:46 - Notes Notes: PHYSICAL EXAMINATION: GENERAL: Well-appearing, well-nourished and in no acute distress. HEAD: Mild pain to the left forehead on palpation but no obvious contusion.. EYES: Pupils equal round and reactive to light, extraocular movements intact, conjunctiva are normal. ENT: Nares patent, oropharynx clear without exudates. Moist mucous membranes. NECK: Normal range of motion, supple without lymphadenopathy. Mild pain left greater than right posterior neck. No crepitance or bony deformity. LUNGS: Breath sounds clear to auscultation bilaterally and equal. No wheezes rales or rhonchi. HEART: Regular rate and rhythm without murmurs ABDOMEN: Soft, nontender, nondistended abdomen. No guarding, no rebound. No masses appreciated. Female : deferred Musculoskeletal: No cyanosis. 2+ lower extremity edema which patient states is chronic. Patient has pain appreciated to the left anterior knee, left shoulder, left hip and through the wrist. There is mild swelling and contusion to the wrist. The hand and elbow are nontender and nonfocal. There is no significant back pain or chest wall pain. Patient distally, is good sensation and capillary refill and pulses. NEUROLOGICAL: Cranial nerves grossly intact. Normal speech, normal gait. Normal sensory, motor exams PSYCH: Normal mood, normal affect. SKIN: Warm, Dry, normal turgor, no rashes or lesions noted. Course - Re-evaluation Re-evalutation: 06/27/19 23:41 X-rays were negative on the patient with exception of the left wrist which showed a nondisplaced distal radius fracture. Patient was placed in a sugar tong splint from fingertip to fingertip with a left arm sling and will follow-up with orthopedics. She was given tramadol for pain with adequate relief. There is no evidence for acute intracranial bleed or other acute process or CVA. No evidence for neck fracture. No evidence for neurovascular compromise or other injury. - Vital Signs Vital signs: Temp Pulse Resp BP Pulse Ox 98.6 F 57 L 16 132/92 H 98 06/27/19 18:46 06/27/19 21:09 06/27/19 21:09 06/27/19 22:09 06/27/19 21:09 - Laboratory Result Diagrams: 06/27/19 20:31 Laboratory results interpreted by me: 06/27/19 20:31 Sodium 134.9 L BUN 30 H Est GFR (MDRD) Non-Af 56 L Glucose 131 H Discharge - Discharge Clinical Impression: Abrasion Accidental fall Qualifiers: Encounter type: initial encounter Qualified Code(s): W19.XXXA - Unspecified fall, initial encounter Shoulder sprain Qualifiers: Encounter type: initial encounter Shoulder sprain type: other part of shoulder region Laterality: left Qualified Code(s): S43.492A - Other sprain of left shoulder joint, initial encounter Hip sprain Qualifiers: Encounter type: initial encounter Laterality: left Qualified Code(s): S73.102A - Unspecified sprain of left hip, initial encounter Wrist fracture Qualifiers: Encounter type: initial encounter Fracture type: closed Laterality: left Qualified Code(s): S62.102A - Fracture of unspecified carpal bone, left wrist, initial encounter for closed fracture Head injury Qualifiers: Encounter type: initial encounter Qualified Code(s): S09.90XA - Unspecified i njury of head, initial encounter Condition: Stable Disposition: HOME, SELF-CARE Instructions: Splint Pending Casting ([facility]), Sling to be Used ([facility]), Fractured Radius ([facility]), Head Injury Precautions ([facility]), Shoulder Injury ([facility]) Additional Instructions: Elevate wrist as needed for pain. Follow-up with Dr. Leon with orthopedics in 2 days. Talk with your doctor about whether or not you should be taking Celebrex while you are on Xarelto. Take Tylenol as directed for pain, add in tramadol as needed for continued pain. Prescriptions: Tramadol HCl [Ultram 50 mg Tablet] 50 mg PO Q4HP PRN #30 tab PRN Reason: Referrals: CHARISSA HERNÁNDEZ PA-C [Primary Care Provider] - Follow up as needed JOSE LEON DO [ACTIVE STAFF] - Follow up as needed
[2019-06-28 00:22] VITALS: BP 164/74
== END 2019-06-28 00:35 | disposition home or self-care (01) ==
LOC: ER 18:09
DX: S43.492A Other sprain of left shoulder joint, initial encounter (principal); S73.102A Unspecified sprain of left hip, initial encounter; S62.102A Fracture of unspecified carpal bone, left wrist, initial encounter for closed fracture; S09.90XA Unspecified injury of head, initial encounter; M25.552 Pain in left hip; M25.562 Pain in left knee; M25.512 Pain in left shoulder; M25.532 Pain in left wrist; W19.XXXA Unspecified fall, initial encounter; I11.0 Hypertensive heart disease with heart failure; I50.9 Heart failure, unspecified; Z79.01 Long term (current) use of anticoagulants; Z86.718 Personal history of other venous thrombosis and embolism
CPT/HCPCS: 36415; 85610; 80048; 73502; 73564; 73030; 73110; 70450; 72125; J3490; A9270; 99284

== ENCOUNTER → 2020-10-19 | Outpatient (CLI) | payer MEDICARE, OTHER ==
--- NOTE | 2020-10-19 15:35 | RADIOLOGY REPORT (SQ) ---
EXAM DESCRIPTION: CT ABD/PELVIS ORAL ONLY IMAGES COMPLETED DATE/TIME: 10/19/2020 3:01 pm REASON FOR STUDY: (R10.9)UNSPECIFIED ABDOMINAL PAIN(R63.4)ABNORMAL WEIGHT LOSS R10.9 UNSPECIFIED AB DOMINAL PAIN R63.4 ABNORMAL WEIGHT LOSS COMPARISON: 10/02/2019 TECHNIQUE: CT scan of the abdomen and pelvis performed without intravenous. Patient was given oral contrast. Images reviewed with lung, soft tissue, and bone windows. Reconstructed coronal and sagitta l MPR images reviewed. All images stored on PACS. All CT scanners at this facility use dose modulation, iterative reconstruction, and/or weight based d osing when appropriate to reduce radiation dose to as low as reasonably achievable (ALARA). [facility]: Dose Right [facility]: CareDose [facility]: Dose Right [facility]: Teradose 4D [facility]: Smart [place] RADIATION DOSE: CT Rad equipment meets quality standard of care and radiation dose reduction techniq ues were employed. CTDIvol: 5.4 mGy. DLP: 259 mGy-cm.mGy. LIMITATIONS: None. FINDINGS: LOWER CHEST: No significant findings. No nodules or infiltrates. Small hiatal hernia. NON-CONTRASTED LIVER, SPLEEN, ADRENALS: Evaluation limited by lack of IV contrast. No identified sign ificant masses. PANCREAS: No masses. No peripancreatic inflammatory changes. GALLBLADDER: Decompressed or absent. RIGHT KIDNEY AND URETER: No suspicious masses. Assessment limited by lack of IV contrast. No signif icant calcifications. No hydronephrosis or hydroureter. LEFT KIDNEY AND URETER: No suspicious masses. Assessment limited by lack of IV contrast. No signifi cant calcifications. No hydronephrosis or hydroureter. AORTA AND RETROPERITONEUM: No aneurysm. No retroperitoneal masses or adenopathy. Inferior vena cava filter in the infrarenal location. The tip is located with apex along the left lateral IVC wall. . BOWEL AND PERITONEAL CAVITY: No evidence of intestinal obstruction. No focal bowel wall thickening. Moderate stool and contrast throughout the colon. Small hiatal hernia. APPENDIX: Normal. PELVIS, BLADDER, AND ABDOMINAL WALL:No abnormal masses. No free fluid. Bladder normal. BONES: No acute bony abnormality. No suspicious lytic or blastic osseous lesions. Lower lumbar face t arthropathy. OTHER: No other significant finding. IMPRESSION: No evidence of acute intra-abdominal/pelvic process. Incidental findings as above. COMMENT: Quality ID # [id number]: Final reports with documentation of one or more dose reduction techniques (e.g., Automated exposure control, adjustment of the mA and/or kV according to patient size, use of iterative reconstruction technique) TECHNICAL DOCUMENTATION: JOB ID: [id number] 2010 [employer]- All Rights Reserved Reading location - IP/workstation name: [email or web address]
== END ==
LOC: RAD 13:10
PROVIDERS: ATTEND Physician Assistant
DX: R10.9 Unspecified abdominal pain (principal); R63.4 Abnormal weight loss; K44.9 Diaphragmatic hernia without obstruction or gangrene
CPT/HCPCS: 74176

== ENCOUNTER → 2020-10-23 | Outpatient (CLI) | payer MEDICARE, OTHER ==
--- NOTE | 2020-10-23 13:48 | RADIOLOGY REPORT (SQ) ---
EXAM DESCRIPTION: UGI W/ DOUBLE CONTRAST; SMALL BOWEL POST UGI IMAGES COMPLETED DATE/TIME: 10/23/2020 10:29 am; 10/23/2020 12:33 pm REASON FOR STUDY: (R10.9) UNSPECIFIED ABDOMINAL PAIN (R63.4) ABNORMAL WEIGHT LOSS; (R10.9)UNSPECIFIE D ABDOMINAL PAIN;(R63.4)ABNORMAL WEIGHT LOSS R10.9 UNSPECIFIED ABDOMINAL PAIN R63.4 ABNORMAL WEIGHT LOSS COMPARISON: None. TECHNIQUE: Under fluoroscopic guidance, patient ingested effervescent granules followed by thick an d thin barium. Fluoroscopic spot images and routine radiographic images acquired and stored on PACS . Following evaluation of esophagus and stomach, additional barium administered with serial delayed ab dominal radiographs until colonic identification. Fluoroscopic images recorded of the terminal ileu m. 12 MM BARIUM TABLET GIVEN: Yes. Slight delay in passage at the GE junction. FLUOROSCOPY TIME: 2.3 minutes of fluoroscopy was used. 24 images saved to PACS. LIMITATIONS: None. FINDINGS: NEUROMUSCULAR COORDINATION OF SWALLOW: There is laryngeal penetration and trace aspiration seen. ESOPHAGEAL MOTILITY: Slow primary peristalsis with stasis of barium throughout the esophagus. ESOPHAGEAL MUCOSA: Normal mucosa without masses or ulceration. GASTRO-ESOPHAGEAL JUNCTION: Narrowing of the distal esophagus across the GE junction due to the N[place] n fundoplication. No hiatal hernia or significant reflux is seen. There is slow passage of the 12 m m barium tablet across the GE junction, thought to be due to poor esophageal motility. STOMACH: Postoperative changes from [place] fundoplication which appears intact. No mucosal lesions s een. GASTRIC OUTLET: No delay in emptying. Normal pylorus. DUODENAL BULB: Normal distention. No spasm or ulceration. DUODENUM: Mucosa normal. No extrinsic masses or malrotation. Large duodenal diverticulum projecting off the 2nd portion the duodenum. PROXIMAL SMALL BOWEL: Normal as visualized. JEJUNUM: Normal mucosal pattern. No dilatation, segmentation, strictures or masses. ILEUM: Normal mucosal pattern. No dilatation, segmentation, strictures or masses. TERMINAL ILEUM AND ILEO-CECAL VALVE: Normal mucosal pattern without cobble-stoning or stricture. Few scattered diverticula seen involving the distal ileum. Normal compression. PROXIMAL COLON: Incompletely imaged. No abnormality. NON-GI TRACT STRUCTURES: No significant finding. OTHER: Transit time through the small bowel is normal with filling of the cecum seen on the 3 hour im age. IMPRESSION: 1. ESOPHAGEAL DYSMOTILITY. 2. DELAYED PASSAGE OF THE 12 MM BARIUM TABLET ACROSS THE GE JUNCTION DUE TO ESOPHAGEAL DYSMOTILITY. STATUS POST [place] FUNDOPLICATION APPEARS INTACT WITHOUT COMPLICATION. 3. DUODENAL AND DISTAL ILEAL DIVERTICULA. 4. POSTOPERATIVE CHANGES OF THE STOMACH. OTHERWISE UNREMARKABLE. NORMAL SMALL BOWEL FOLLOW-THROUGH . COMMENT: Quality ID [id number]: Final reports for procedures using fluoroscopy that document radiation exp osure indices, or exposure time and number of fluorographic images (if radiation exposure indices are not available) TECHNICAL DOCUMENTATION: JOB ID: [id number] 2010 [employer]- All Rights Reserved Reading location - IP/workstation name: [email or web address]
== END ==
LOC: RAD 08:42
PROVIDERS: ATTEND Physician Assistant
DX: R10.9 Unspecified abdominal pain (principal); R63.4 Abnormal weight loss
CPT/HCPCS: 74246; 74248